=== PATIENT | female | born 1950 | race Caucasian/White ===

== ENCOUNTER 2018-08-30 02:10 | Emergency (ER) | payer MEDICARE ==
[~2018-08-30] VITALS: Ht 162.6 cm; Wt 90.9 kg
[~2018-08-30 02:10] MED LIST: DOCU-28 PO; SENN25TA27 PO; losartan potassium PO; thyroid PO
--- NOTE | 2018-08-30 02:43 | NUR ---
telepsych initiated cart in room
[2018-08-30 02:56] LABS: BASOPHILS # (AUTO) 0.1 X10'3 (0-0.2); EOSINOPHILS # (AUTO) 0.1 X10'3 (0-0.9); EOSINOPHILS % (AUTO) 1.3 % (0-6); HEMATOCRIT 40.1 % (35.0-45.0); HEMOGLOBIN 13.9 g/dl (12.0-16.0); LYMPHOCYTES # (AUTO) 1.5 X10'3 (1.1-4.8); LYMPHOCYTES % (AUTO) 17.1 % (21-51); MEAN CORPUSCULAR HGB CONC 34.6 g/dL (33.0-36.5); MEAN CORPUSCULAR VOLUME 89.7 FL (78-98); MEAN PLATELET VOLUME 7.3 FL (7.4-10.4); MONOCYTES # (AUTO) 0.4 X10'3 (0-0.9); MONOCYTES % (AUTO) 4.7 % (2-12); NEUTROPHILS # (AUTO) 6.6 X10'3 (1.8-7.7); NEUTROPHILS % (AUTO) 75.9 % (42-75); PLATELET COUNT 236 X10'3 (140-440); RED BLOOD COUNT 4.47 X10'6 (4.20-5.60); RED CELL DISTRIBUTION WIDTH 13.8 % (11.5-14.5); WHITE BLOOD COUNT 8.7 X10'3 (4.5-11.0)
[2018-08-30 03:03] LABS: ALANINE AMINOTRANSFERASE 23 U/L (12-78); ALBUMIN 3.9 G/DL (3.4-5.0); ALBUMIN/GLOBULIN RATIO 1.1 (1.1-1.5); ALKALINE PHOSPHATASE 96 IU/L (46-116); ANION GAP 6 (8-16); ASPARTATE AMINO TRANSFERASE 19 U/L (10-37); BILIRUBIN,TOTAL 0.4 MG/DL (0.1-1.0); BLOOD UREA NITROGEN 11 MG/DL (7-18); BUN/CREATININE RATIO 14.7 (6.6-38.0); CALCIUM 9.9 MG/DL (8.5-10.1); CHLORIDE 102 MMOL/L (99-107); CREATININE 0.75 MG/DL (0.40-0.90); GLUCOSE 135 MG/DL (70-104); POTASSIUM 4.3 MMOL/L (3.5-5.1); SODIUM 137 MMOL/L (135-145); TOTAL CARBON DIOXIDE 29.2 MMOL/L (24-32); TOTAL PROTEIN 7.3 G/DL (6.4-8.2); eGFR 77 ML/MIN
--- NOTE | 2018-08-30 03:08 | NUR ---
telepsych MD called me to visit about the patients reason for visit christie. He is going to call her now, she is awake and ready for him
[2018-08-30 03:19] LABS: ETHANOL < 0.010 GM/DL (0.0-0.010)
--- NOTE | 2018-08-30 03:38 | NUR ---
Dr Ellis called to state pt is micropsychotic, depressed; he is thinking she qualifies for voluntary admission, to call him back if a 5150 is needed. To administer 0.5mg of ativan po for her anxiety.
[2018-08-30] MEDS ORDERED: LORazepam 0.5 MG tablet PO ONE (03:45)
--- NOTE | 2018-08-30 04:10 | NUR ---
collected ua and then gave her ativan, water at bs encouraged her to sleep
[2018-08-30 04:33] LABS: URINE AMPHETAMINE SCREEN NEGATIVE (Neg); URINE BARBITUATE SCREEN NEGATIVE (Neg); URINE BENZODIAZEPINES SCREEN NEGATIVE (Neg); URINE CANNABINOID SCREEN NEGATIVE (Neg); URINE COCAINE SCREEN NEGATIVE (Neg); URINE METHADONE SCREEN NEGATIVE (Neg); URINE OPIATE SCREEN POSITIVE (Neg); URINE PHENCYCLIDINE SCREEN NEGATIVE (Neg)
--- NOTE | 2018-08-30 05:17 | NUR ---
Pt appears to be asleep, her eyes are closed
--- NOTE | 2018-08-30 05:59 | NUR ---
pt up going to the bathroom. She asked for nausea medication. DR Watson made aware.
[2018-08-30] MEDS ORDERED: ondansetron 4mg rapidly disintigrating tab PO ONE (06:05)
[2018-08-30] MEDS ORDERED: levoTHYROXINE 75mcg tablet PO SCH (07:00)
[2018-08-30] MEDS ORDERED: acetaminophen 325mg tablet PO ONE ×2 (09:30→19:10)
--- NOTE | 2018-08-30 11:40 | NUR ---
PT TRANSFERRED FROM BED 16 TO OVERFLOW 27
[2018-08-30] MEDS ORDERED: LEVO100T PO (17:10)
[2018-08-30] MEDS ORDERED: LEVO112T52 PO (17:14)
[2018-08-30] MEDS ORDERED: mag hydrox/Alum hydrox/simeth 30ml oral suspension PO ONE (19:10)
[2018-08-30] MEDS ORDERED: LORazepam 0.5 MG tablet PO PRN (20:00)
[2018-08-30] MEDS ORDERED: losartan 50mg tablet PO SCH (21:00)
--- NOTE | 2018-08-31 01:25 | NUR ---
Patient resting comfortably, no needs voiced at this time. 16 even and unlabored respirations
[2018-08-31] MEDS: levoTHYROXINE 112mcg tablet PO SCH ×2 (07:00→08:00)
--- NOTE | 2018-08-31 07:00 | NUR ---
Awake upon change of shift observation. Pleasant upon approach. States she is suffereing from "too much acid in my stomach." Dr. Lopez consulted. Orders given for Maalox and Pepcid. Medications administered as ordered. Patient stated "I haven't slept all night with all the noise around here."
[2018-08-31] MEDS ORDERED: mag hydrox/Alum hydrox/simeth 30ml oral suspension PO ONE (07:05)
[2018-08-31] MEDS ORDERED: famotidine 20mg tablet PO ONE (07:05)
--- NOTE | 2018-08-31 09:00 | NUR ---
Served breakfast tray. Ate 100% of her food. Spoke easily with staff about what brought her in to the hospital. States she brought self in after [place] seeing her worst fear, spiders, crawling on the floor to her. Believes her condition may be due to "my thyroid, it's not been right for a while." Thyroid value reveals an elevated TSH.
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
--- NOTE | 2018-08-31 13:00 | NUR ---
Call received from Fidelia PRUITT, [facility], stating patient had been accepted for admission there.
--- NOTE | 2018-08-31 15:30 | NUR ---
Discharge Note Patient accepted to [facility] by Dr. aZmora. Transported upstairs via wheelchair with all her personal possessions.
[2018-08-31 16:46] VITALS: BP 116/56
[2018-08-31] MEDS ORDERED: ESTR0.6261 VG (19:38)
[2018-09-01] MEDS ORDERED: levoTHYROXINE 100mcg tablet PO SCH (08:00)
== END 2018-08-31 15:30 ==
LOC: ER 02:11
DX: F32.9 Major depressive disorder, single episode, unspecified (principal); R45.851 Suicidal ideations; R44.1 Visual hallucinations; I10 Essential (primary) hypertension; G89.29 Other chronic pain; E03.9 Hypothyroidism, unspecified; Z90.710 Acquired absence of both cervix and uterus; Z98.890 Other specified postprocedural states; Z60.2 Problems related to living alone; Z88.0 Allergy status to penicillin; Z88.2 Allergy status to sulfonamides; Z91.040 Latex allergy status; Z88.8 Allergy status to other drugs, medicaments and biological substances; Z79.899 Other long term (current) drug therapy
CPT/HCPCS: 36415; 80053; 80305; 80320; 84443; 85025; 99285

== ENCOUNTER 2018-08-31 13:00 | Inpatient (IN) | payer MEDICARE | END 2018-09-16 11:00 | disposition still patient (30) | LOC: ADULT MH 13:00 | DX: F33.3 Major depressive disorder, recurrent, severe with psychotic symptoms (principal) ==

== ENCOUNTER 2018-11-28 18:04 | Emergency (ER) | payer MEDICARE ==
[~2018-11-28] VITALS: Ht 165.1 cm; Wt 95.5 kg
[~2018-11-28 18:04] MED LIST changes: +ESTR0.6261 VG; +LEVO100T PO; +LEVO112T52 PO; +LOSA50TA64 PO; +MIRT15TA8 PO; +PALI3TAB5 PO; -SENN25TA27 PO; +TRAZ150T78 PO; +VENL75CA61 PO; -losartan potassium PO; -thyroid PO
[2018-11-28 19:00] LABS: BASOPHILS # (AUTO) 0.1 X10'3 (0-0.2); BASOPHILS % (AUTO) 1.2 % (0-1); EOSINOPHILS # (AUTO) 0.2 X10'3 (0-0.9); EOSINOPHILS % (AUTO) 2.9 % (0-6); HEMATOCRIT 36.3 % (35.0-45.0); HEMOGLOBIN 12.4 g/dl (12.0-16.0); LYMPHOCYTES # (AUTO) 1.6 X10'3 (1.1-4.8); LYMPHOCYTES % (AUTO) 25.2 % (21-51); MEAN CORPUSCULAR HGB CONC 34.1 g/dL (33.0-36.5); MEAN CORPUSCULAR VOLUME 90.8 FL (78-98); MEAN PLATELET VOLUME 6.5 FL (7.4-10.4); MONOCYTES # (AUTO) 0.5 X10'3 (0-0.9); MONOCYTES % (AUTO) 7.1 % (2-12); NEUTROPHILS # (AUTO) 4.1 X10'3 (1.8-7.7); NEUTROPHILS % (AUTO) 63.6 % (42-75); PLATELET COUNT 229 X10'3 (140-440); RED CELL DISTRIBUTION WIDTH 14.2 % (11.5-14.5); WHITE BLOOD COUNT 6.5 X10'3 (4.5-11.0)
--- NOTE | 2018-11-28 19:00 | NUR ---
Pt in room. Pt states she was out of her anti-depressant but got it refilled today. Pt feeling SI with plan.
[2018-11-28 19:06] LABS: PARTIAL THROMBOPLASTIN TIME 27 SECONDS (22-32)
[2018-11-28 19:12] LABS: ALANINE AMINOTRANSFERASE 28 U/L (12-78); ALBUMIN 3.5 G/DL (3.4-5.0); ALKALINE PHOSPHATASE 98 IU/L (46-116); ANION GAP 6 (8-16); ASPARTATE AMINO TRANSFERASE 14 U/L (10-37); BILIRUBIN,TOTAL 0.3 MG/DL (0.1-1.0); BLOOD UREA NITROGEN 9 MG/DL (7-18); BUN/CREATININE RATIO 15.5 (6.6-38.0); CALCIUM 9.2 MG/DL (8.5-10.1); CHLORIDE 103 MMOL/L (99-107); CREATININE 0.58 MG/DL (0.40-0.90); GLUCOSE 107 MG/DL (70-104); SODIUM 137 MMOL/L (135-145); TOTAL CARBON DIOXIDE 28.2 MMOL/L (24-32); eGFR > 90 ML/MIN
[2018-11-28 19:14] LABS: ETHANOL < 0.010 GM/DL (0.0-0.010)
[2018-11-28 19:15] LABS: ACETAMINOPHEN < 2.0 UG/ML (10-30)
[2018-11-28] MEDS ORDERED: LANS30CA56 PO (19:21)
[2018-11-28] MEDS ORDERED: LORA1TAB PO (19:24)
[2018-11-28] MEDS ORDERED: VENL-190 PO (19:25)
[2018-11-28] MEDS ORDERED: ESTR0.6261 PO (19:27)
[2018-11-28 19:38] LABS: URINE AMPHETAMINE SCREEN NEGATIVE (Neg); URINE BARBITUATE SCREEN NEGATIVE (Neg); URINE BENZODIAZEPINES SCREEN NEGATIVE (Neg); URINE CANNABINOID SCREEN NEGATIVE (Neg); URINE COCAINE SCREEN NEGATIVE (Neg); URINE METHADONE SCREEN NEGATIVE (Neg); URINE OPIATE SCREEN NEGATIVE (Neg); URINE PHENCYCLIDINE SCREEN NEGATIVE (Neg)
--- NOTE | 2018-11-28 20:00 | NUR ---
Pt resting quietly, respirations normal, no s/s of distress.
--- NOTE | 2018-11-28 21:00 | NUR ---
Pt resting quietly, respirations normal, no s/s of distress.
[2018-11-28] MEDS: traZODone 150mg tablet PO SCH (21:34)
[2018-11-28] MEDS: losartan 50mg tablet PO SCH (21:34)
--- NOTE | 2018-11-28 22:13 | NUR ---
Pt resting quietly, respirations normal, no s/s of distress.
--- NOTE | 2018-11-28 23:51 | NUR ---
Pt resting quietly, respirations normal, no s/s of distress.
--- NOTE | 2018-11-29 01:28 | NUR ---
Pt resting quietly, respirations normal, no s/s of distress.
--- NOTE | 2018-11-29 03:01 | NUR ---
Pt resting quietly, respirations normal, no s/s of distress.
--- NOTE | 2018-11-29 04:05 | NUR ---
Pt resting quietly, respirations normal, no s/s of distress.
--- NOTE | 2018-11-29 04:52 | NUR ---
Pt resting quietly, respirations normal, no s/s of distress.
[2018-11-29] MEDS ORDERED: levoTHYROXINE 112mcg tablet PO SCH (06:00)
--- NOTE | 2018-11-29 07:00 | NUR ---
Pt sitting up talking calmly.
[2018-11-29] MEDS: venlafaxine XR 75mg capsule (Q24H) PO SCH (07:32)
[2018-11-29] MEDS: LORazepam 1 MG tablet PO SCH ×2 (07:32→20:47)
[2018-11-29] MEDS: pantoprazole 40mg Tablet.DR PO SCH (07:32)
--- NOTE | 2018-11-29 09:00 | NUR ---
Took AM meds and ate breakfast.
[2018-11-29] MEDS ORDERED: acetaminophen 325mg tablet PO ONE (10:10)
--- NOTE | 2018-11-29 11:00 | NUR ---
Sitting up in bed talking with County worker.
--- NOTE | 2018-11-29 13:00 | NUR ---
Sitting up in bed eating lunch.
--- NOTE | 2018-11-29 15:00 | NUR ---
Pt ambulating around unit, calm and cooperative.
--- NOTE | 2018-11-29 17:00 | NUR ---
Pt lying in bed with no complaints.
--- NOTE | 2018-11-29 18:28 | NUR ---
Report to Jaqueline in [place]
--- NOTE | 2018-11-29 18:49 | NUR ---
The patient has been accepted at [facility].
--- NOTE | 2018-11-29 19:12 | NUR ---
One to one with the patient to asseess for severity of depressive sympoms, disordered thought processes and self harm risk. The patient denies being suicidal at this time. She is focused on medical complaints that are stable. She stated that she is depressed and feeling disapointed in herself in general. She denies D&A abuse. When asked about voices here in the unit she replied, "I thought I heard my brother talking to me. She stated her anxiety is 6/10. She denies suicidal thoughts here in the hospital and she added, "I feel like my normal self" She denies visual hallucinations. She maintains good eye contact. She appears clean and well groomed.
--- NOTE | 2018-11-29 20:35 | NUR ---
The patient has been accepted to [facility] and will be picked by [facility] medical driver at 0730 in the am.
[2018-11-29] MEDS: traZODone 150mg tablet PO SCH (20:47)
[2018-11-29] MEDS: losartan 50mg tablet PO SCH (20:47)
--- NOTE | 2018-11-29 21:40 | NUR ---
The patient appears to be sleeping
--- NOTE | 2018-11-30 00:54 | NUR ---
The patient appears to be sleeping
--- NOTE | 2018-11-30 02:29 | NUR ---
The patient appears to be sleeping
--- NOTE | 2018-11-30 04:21 | NUR ---
The patient appears to be sleeping
[2018-11-30] MEDS ORDERED: levoTHYROXINE 100mcg tablet PO SCH (06:00)
[2018-11-30] MEDS: pantoprazole 40mg Tablet.DR PO SCH (07:06)
[2018-11-30] MEDS: venlafaxine XR 75mg capsule (Q24H) PO SCH (07:06)
[2018-11-30] MEDS: LORazepam 1 MG tablet PO SCH (07:06)
[2018-11-30 07:43] VITALS: BP 125/74
[2018-11-30] MEDS ORDERED: estrogen, conjugated 0.625mg tablet PO SCH (08:00)
== END 2018-11-30 07:46 ==
LOC: ER 18:05
DX: F22 Delusional disorders (principal); F60.0 Paranoid personality disorder; F41.9 Anxiety disorder, unspecified; F32.9 Major depressive disorder, single episode, unspecified; I10 Essential (primary) hypertension; G89.29 Other chronic pain; R79.1 Abnormal coagulation profile; Z98.890 Other specified postprocedural states; Z90.710 Acquired absence of both cervix and uterus; Z60.2 Problems related to living alone; Z88.0 Allergy status to penicillin; Z88.2 Allergy status to sulfonamides; Z91.040 Latex allergy status; Z88.8 Allergy status to other drugs, medicaments and biological substances; Z79.899 Other long term (current) drug therapy
CPT/HCPCS: 36415; 80053; 80305; 80320; 80329; 84484; 85025; 85610; 85730; 93005; 99285

== ENCOUNTER 2020-06-15 07:34 | Emergency (ER) | payer MEDICARE ==
[~2020-06-15] VITALS: Ht 165.1 cm; Wt 93.0 kg
[~2020-06-15 07:34] MED LIST changes: -DOCU-28 PO; +ESTR0.6261 PO; -ESTR0.6261 VG; +LANS30CA56 PO; +LORA1TAB PO; -MIRT15TA8 PO; -PALI3TAB5 PO; +VENL-190 PO; -VENL75CA61 PO
[2020-06-15 08:24] LABS: BASOPHILS % (AUTO) 0.2 % (0-1); EOSINOPHILS # (AUTO) 0.9 X10'3 (0-0.9); EOSINOPHILS % (AUTO) 11.3 % (0-6); HEMOGLOBIN 14.1 g/dl (12.0-16.0); LYMPHOCYTES # (AUTO) 2.8 X10'3 (1.1-4.8); LYMPHOCYTES % (AUTO) 36.6 % (21-51); MEAN CORPUSCULAR HEMOGLOBIN 32.4 PG (27.0-31.0); MEAN CORPUSCULAR HGB CONC 34.3 g/dL (33.0-36.5); MEAN CORPUSCULAR VOLUME 94.4 FL (78-98); MEAN PLATELET VOLUME 6.9 FL (7.4-10.4); MONOCYTES # (AUTO) 0.5 X10'3 (0-0.9); NEUTROPHILS # (AUTO) 3.5 X10'3 (1.8-7.7); NEUTROPHILS % (AUTO) 45.9 % (42-75); PLATELET COUNT 220 X10'3 (140-440); RED BLOOD COUNT 4.34 X10'6 (4.20-5.60); RED CELL DISTRIBUTION WIDTH 14.1 % (11.5-14.5); WHITE BLOOD COUNT 7.6 X10'3 (4.5-11.0)
[2020-06-15 08:41] LABS: ALANINE AMINOTRANSFERASE 31 U/L (12-78); ALBUMIN/GLOBULIN RATIO 1.1 (1.1-1.5); ALKALINE PHOSPHATASE 91 IU/L (46-116); ANION GAP 9 (8-16); ASPARTATE AMINO TRANSFERASE 24 U/L (10-37); BILIRUBIN,TOTAL 0.3 MG/DL (0.1-1.0); BLOOD UREA NITROGEN 8 MG/DL (7-18); BUN/CREATININE RATIO 11.3 (6.6-38.0); CALCIUM 9.4 MG/DL (8.5-10.1); CHLORIDE 107 MMOL/L (99-107); CREATININE 0.71 MG/DL (0.40-0.90); GLUCOSE 88 MG/DL (70-104); SODIUM 143 MMOL/L (135-145); TOTAL CARBON DIOXIDE 27.1 MMOL/L (24-32); TOTAL PROTEIN 7.5 G/DL (6.4-8.2); eGFR 82 ML/MIN
[2020-06-15] MEDS ORDERED: iohexol 350MG/ML 100ml bottle IV ONE (10:33)
--- NOTE | 2020-06-15 10:54 | NUR ---
Pt returned from CT and given warm blankets.
[2020-06-15] MEDS ORDERED: hyDRALAzine 10mg tablet PO STA (11:16)
[2020-06-15 11:53] VITALS: BP 181/98
== END 2020-06-15 11:55 | disposition home or self-care (01) ==
LOC: ER 07:34
DX: I10 Essential (primary) hypertension (principal); Z20.828 Contact with and (suspected) exposure to other viral communicable diseases; R06.00 Dyspnea, unspecified; E07.9 Disorder of thyroid, unspecified; G89.29 Other chronic pain; Z98.891 History of uterine scar from previous surgery; Z90.710 Acquired absence of both cervix and uterus; Z60.9 Problem related to social environment, unspecified; Z88.0 Allergy status to penicillin; Z88.2 Allergy status to sulfonamides; Z91.013 Allergy to seafood; Z91.040 Latex allergy status; Z88.8 Allergy status to other drugs, medicaments and biological substances; Z79.899 Other long term (current) drug therapy
CPT/HCPCS: 36415; 71045; 71275; 80053; 83880; 84145; 84484; 85025; 85384; 87635; 93005; 99285; C9803; Q9967

== ENCOUNTER 2020-07-27 09:26 | Emergency (ER) | payer MEDICARE ==
[~2020-07-27] VITALS: Ht 165.1 cm; Wt 86.4 kg
[2020-07-27] MEDS ORDERED: HYDROcodone/acetaminophen 10/325mg tab PO ONE (10:55)
[2020-07-27] MEDS ORDERED: orphenadrine citrate 60mg/2ml inj. IM ONE (10:55)
[2020-07-27] MEDS ORDERED: ORPH100T2 PO (10:59)
[2020-07-27] MEDS ORDERED: HYDR-3972 PO (10:59)
[2020-07-27 11:26] VITALS: BP 123/68
== END 2020-07-27 11:28 | disposition home or self-care (01) ==
LOC: ER 09:26
DX: S16.1XXA Strain of muscle, fascia and tendon at neck level, initial encounter (principal); S09.90XA Unspecified injury of head, initial encounter; I10 Essential (primary) hypertension; G89.29 Other chronic pain; F41.9 Anxiety disorder, unspecified; F32.9 Major depressive disorder, single episode, unspecified; Z90.710 Acquired absence of both cervix and uterus; Z98.890 Other specified postprocedural states; Z60.2 Problems related to living alone; Z88.0 Allergy status to penicillin; Z88.2 Allergy status to sulfonamides; Z91.040 Latex allergy status; Z88.8 Allergy status to other drugs, medicaments and biological substances; Z79.899 Other long term (current) drug therapy; W18.39XA Other fall on same level, initial encounter; Y93.89 Activity, other specified; Y92.89 Other specified places as the place of occurrence of the external cause; Y99.8 Other external cause status
CPT/HCPCS: 70450; 72125; 96372; 99285; J2360

== ENCOUNTER 2020-08-02 07:29 | Emergency (ER) | payer MEDICARE ==
[~2020-08-02] VITALS: Ht 162.6 cm; Wt 86.4 kg
[~2020-08-02 07:29] MED LIST changes: +HYDR-3972 PO; +ORPH100T2 PO
[2020-08-02] MEDS ORDERED: proCHLORperazine 10 MG/2 ml inj IV ONE (08:20)
[2020-08-02] MEDS ORDERED: diphenhydrAMINE 50 mg/ml inj IV ONE (08:20)
[2020-08-02] MEDS ORDERED: normal saline 1000ml 1,000 ML IV ONE (08:20)
[2020-08-02] MEDS ORDERED: ketorolac tromethamine 15mg/ml inj. IV ONE (08:20)
[2020-08-02 08:35] LABS: BASOPHILS % (AUTO) 0.3 % (0-1); EOSINOPHILS % (AUTO) 0.3 % (0-6); HEMATOCRIT 40.3 % (35.0-45.0); HEMOGLOBIN 13.8 g/dl (12.0-16.0); LYMPHOCYTES % (AUTO) 18.1 % (21-51); MEAN CORPUSCULAR HEMOGLOBIN 31.6 PG (27.0-31.0); MEAN CORPUSCULAR HGB CONC 34.3 g/dL (33.0-36.5); MEAN CORPUSCULAR VOLUME 92.1 FL (78-98); MEAN PLATELET VOLUME 7.2 FL (7.4-10.4); MONOCYTES # (AUTO) 0.4 X10'3 (0-0.9); MONOCYTES % (AUTO) 7.4 % (2-12); NEUTROPHILS # (AUTO) 4.1 X10'3 (1.8-7.7); NEUTROPHILS % (AUTO) 73.9 % (42-75); PLATELET COUNT 255 X10'3 (140-440); RED BLOOD COUNT 4.37 X10'6 (4.20-5.60); WHITE BLOOD COUNT 5.6 X10'3 (4.5-11.0)
[2020-08-02 08:47] LABS: ANION GAP 8 (8-16); BLOOD UREA NITROGEN 9 MG/DL (7-18); BUN/CREATININE RATIO 12.3 (6.6-38.0); CALCIUM 9.1 MG/DL (8.5-10.1); CHLORIDE 99 MMOL/L (99-107); CREATININE 0.73 MG/DL (0.40-0.90); GLUCOSE 104 MG/DL (70-104); POTASSIUM 3.7 MMOL/L (3.5-5.1); SODIUM 136 MMOL/L (135-145); TOTAL CARBON DIOXIDE 28.6 MMOL/L (24-32); eGFR 79 ML/MIN
[2020-08-02 09:23] VITALS: BP 142/76
== END 2020-08-02 10:11 | disposition home or self-care (01) ==
LOC: ER 07:29
DX: F07.81 Postconcussional syndrome (principal); R53.1 Weakness; R11.2 Nausea with vomiting, unspecified; R19.7 Diarrhea, unspecified; I10 Essential (primary) hypertension; G89.29 Other chronic pain; F41.9 Anxiety disorder, unspecified; F32.9 Major depressive disorder, single episode, unspecified; Z90.710 Acquired absence of both cervix and uterus; Z98.890 Other specified postprocedural states; Z60.2 Problems related to living alone; Z88.0 Allergy status to penicillin; Z88.2 Allergy status to sulfonamides; Z88.8 Allergy status to other drugs, medicaments and biological substances; Z91.040 Latex allergy status; Z79.899 Other long term (current) drug therapy
CPT/HCPCS: 36415; 80048; 85025; 93005; 96361; 96374; 96375; 99284; J0780; J1200; J1885; J7030

== ENCOUNTER 2020-10-30 11:39 | Emergency (ER) | payer MEDICARE ==
[~2020-10-30] VITALS: Ht 165.1 cm; Wt 94.3 kg
[~2020-10-30 11:39] MED LIST changes: -HYDR-3972 PO
[2020-10-30 12:11] VITALS: BP 130/76
== END 2020-10-30 14:30 | disposition home or self-care (01) ==
LOC: ER 11:39
DX: S20.211A Contusion of right front wall of thorax, initial encounter (principal); R06.02 Shortness of breath; R07.89 Other chest pain; I10 Essential (primary) hypertension; G89.29 Other chronic pain; F41.9 Anxiety disorder, unspecified; F32.9 Major depressive disorder, single episode, unspecified; Z90.710 Acquired absence of both cervix and uterus; Z98.890 Other specified postprocedural states; Z60.2 Problems related to living alone; Z88.0 Allergy status to penicillin; Z88.8 Allergy status to other drugs, medicaments and biological substances; Z88.2 Allergy status to sulfonamides; Z91.040 Latex allergy status; Z79.899 Other long term (current) drug therapy; W19.XXXA Unspecified fall, initial encounter; Y93.89 Activity, other specified; Y92.89 Other specified places as the place of occurrence of the external cause; Y99.8 Other external cause status
CPT/HCPCS: 71045; 71250; 99284

== ENCOUNTER 2021-02-10 07:22 | Emergency (ER) | payer MEDICARE ==
[~2021-02-10] VITALS: Ht 165.1 cm; Wt 84.0 kg
[2021-02-10 09:17] LABS: BASOPHILS % (AUTO) 0.1 % (0-1); EOSINOPHILS # (AUTO) 0.7 X10'3 (0-0.9); EOSINOPHILS % (AUTO) 9.6 % (0-6); HEMATOCRIT 40.5 % (35.0-45.0); HEMOGLOBIN 13.7 g/dl (12.0-16.0); LYMPHOCYTES # (AUTO) 1.6 X10'3 (1.1-4.8); MEAN CORPUSCULAR HEMOGLOBIN 31.1 PG (27.0-31.0); MEAN CORPUSCULAR HGB CONC 33.8 g/dL (33.0-36.5); MEAN CORPUSCULAR VOLUME 92.1 FL (78-98); MEAN PLATELET VOLUME 7.1 FL (7.4-10.4); MONOCYTES # (AUTO) 0.5 X10'3 (0-0.9); MONOCYTES % (AUTO) 6.5 % (2-12); NEUTROPHILS # (AUTO) 4.5 X10'3 (1.8-7.7); NEUTROPHILS % (AUTO) 61.8 % (42-75); PLATELET COUNT 227 X10'3 (140-440); RED CELL DISTRIBUTION WIDTH 16.5 % (11.5-14.5); WHITE BLOOD COUNT 7.3 X10'3 (4.5-11.0)
[2021-02-10 09:29] LABS: ALANINE AMINOTRANSFERASE 17 U/L (12-78); ALBUMIN 3.5 G/DL (3.4-5.0); ALBUMIN/GLOBULIN RATIO 1.1 (1.1-1.5); ALKALINE PHOSPHATASE 73 IU/L (46-116); ANION GAP 7 (8-16); ASPARTATE AMINO TRANSFERASE 11 U/L (10-37); BILIRUBIN,TOTAL 0.3 MG/DL (0.1-1.0); BLOOD UREA NITROGEN 9 MG/DL (7-18); BUN/CREATININE RATIO 11.4 (6.6-38.0); CHLORIDE 108 MMOL/L (99-107); CREATININE 0.79 MG/DL (0.40-0.90); GLUCOSE 97 MG/DL (70-104); POTASSIUM 3.8 MMOL/L (3.5-5.1); SODIUM 143 MMOL/L (135-145); TOTAL CARBON DIOXIDE 27.8 MMOL/L (24-32); TOTAL PROTEIN 6.6 G/DL (6.4-8.2); eGFR 72 ML/MIN
[2021-02-10 09:40] LABS: ETHANOL < 0.010 GM/DL (0.0-0.010)
[2021-02-10 09:43] LABS: ACETAMINOPHEN < 2.0 UG/ML (10-30)
[2021-02-10 10:43] LABS: URINE AMPHETAMINE SCREEN NEGATIVE (Neg); URINE BARBITUATE SCREEN NEGATIVE (Neg); URINE BENZODIAZEPINES SCREEN NEGATIVE (Neg); URINE CANNABINOID SCREEN NEGATIVE (Neg); URINE COCAINE SCREEN NEGATIVE (Neg); URINE METHADONE SCREEN NEGATIVE (Neg); URINE PHENCYCLIDINE SCREEN NEGATIVE (Neg)
[2021-02-10 10:53] LABS: URINE OPIATE SCREEN NEGATIVE (Neg)
[2021-02-10] MEDS: LORazepam 0.5 MG tablet PO PRN (15:52)
[2021-02-10] MEDS ORDERED: ESTR42.53 VG (16:50)
[2021-02-10] MEDS ORDERED: CEPH500C2 PO (16:50)
[2021-02-10] MEDS ORDERED: ESTR42.510 VG (16:50)
[2021-02-10] MEDS ORDERED: LOSA50TA3 PO (16:50)
[2021-02-10] MEDS ORDERED: acetaminophen 325mg tablet PO PRN (19:50)
[2021-02-10] MEDS: cephalexin 500mg capsule PO SCH (20:09)
--- NOTE | 2021-02-10 20:15 | NUR ---
The patient was moved to bed 26 in the ER overflow. One to one with the patient. The patient is reporting a headache 12/05 and Ned TANG made aware and orders received. The patient reports that she has been hearing voices but she currently doesn't appear distracted by internal stimuli. She reports that she has been having suicidal thoughts for several days and it scared her so she came to the ER. She reports prior suicide attempts by taking an overdose. She is currently being treated for a UTI and is taking Keflex.
--- NOTE | 2021-02-10 20:20 | NUR ---
Packet to [facility]
[2021-02-10] MEDS ORDERED: losartan 50mg tablet PO SCH (21:00)
[2021-02-10] MEDS ORDERED: ESTRADIOL TOP SCH (21:00)
--- NOTE | 2021-02-10 22:19 | NUR ---
The patient appears to be sleeping
--- NOTE | 2021-02-10 23:43 | NUR ---
The patient appears to be sleeping
--- NOTE | 2021-02-11 01:22 | NUR ---
The patient appears to be sleeping
[2021-02-11] MEDS: LORazepam 0.5 MG tablet PO PRN ×2 (05:48→12:58)
--- NOTE | 2021-02-11 08:00 | NUR ---
pt given breakfast and Keflex, pt up to desk asking about levothyroxine. Pharmacy notified and changed to start 02/11. pt. satisfied.
[2021-02-11] MEDS ORDERED: levoTHYROXINE 112mcg tablet PO SCH (08:13)
[2021-02-11] MEDS: levoTHYROXINE 112mcg tablet PO SCH (08:14)
[2021-02-11] MEDS: cephalexin 500mg capsule PO SCH ×2 (08:15→12:57)
[2021-02-11] MEDS ORDERED: levoTHYROXINE 112mcg tablet PO ONE (10:45)
--- NOTE | 2021-02-11 11:02 | NUR ---
spoke with pharmacy, advised to start levothyroxine tomorrow morning and skip today's due to pt. has already eaten breakfast.
--- NOTE | 2021-02-11 14:45 | NUR ---
Pt. up and requesting coffee. Pt. anxious about her discharge to [facility].
--- NOTE | 2021-02-11 14:59 | NUR ---
PT HAS BEEN ACCEPTED TO [facility], [facility] [employer] COORDINATOR TIME WILL BE [phone] MCMAHON, PT WAS ACCEPTED AT 1430.
--- NOTE | 2021-02-11 15:00 | NUR ---
RN spoke with security regarding pt.'s car ([employer]) being parked in hospital parking lot. RN informed security that pt. is being transferred to [facility] in [place].
--- NOTE | 2021-02-11 15:45 | NUR ---
RN did nurse to nurse with Margoth PRUITT at [facility].
[2021-02-11 17:50] VITALS: BP 142/90
[2021-02-11] MEDS ORDERED: lactobacillus rhamnosus 10,000 MMU CELLS/CAPSULE PO SCH (20:00)
[2021-02-12] MEDS ORDERED: ESTRADIOL TOP SCH (21:00)
== END 2021-02-11 17:55 ==
LOC: ER 07:22
DX: R45.851 Suicidal ideations (principal); Z20.822 Contact with and (suspected) exposure to COVID-19; I10 Essential (primary) hypertension; G89.29 Other chronic pain; Z90.710 Acquired absence of both cervix and uterus; Z88.8 Allergy status to other drugs, medicaments and biological substances; Z88.0 Allergy status to penicillin; Z88.2 Allergy status to sulfonamides; Z91.040 Latex allergy status
CPT/HCPCS: 36415; 80053; 80305; 80320; 80329; 84443; 85025; 87635; 99285; C9803